=== PATIENT | female | born 1965 | race Caucasian/White ===

== ENCOUNTER → 2016-05-13 10:12 | Outpatient (CLI) | payer MEDICARE ==
[2014-08-10 07:30] VITALS: BMI 33.7
[~2016-05-13 10:12] MED LIST: ALDACTONE50 MG PO; ARMOUR THYROID90 MG PO; BUTALB-APAP-CA1 EACH PO; GLUCOPHAGE500 MG PO; HYDROCODONE-APA1 TAB PO; HYZAAR 50-12.51 TAB PO; LYRICA150 MG PO; PROMETRIUM200 MG PO; SINGULAIR10 MG PO; SOMA350 MG PO; VICTOZA0.6 MG/0.1 SQ; VITAMIN D2000 UNIT PO
--- NOTE | 2016-05-20 08:22 | EEG ---
PATIENT:JAMIE FALCON DATE OF SERVICE: 05/13/16 MEDICAL RECORD: [id number] DATE OF : 67 LOCATION: D[facility] ADMISSION DATE: 05/13/16 REFERRING PHYSICIAN: INTERPRETING PHYSICIAN: PAU HAGER MD DATE OF SERVICE: 05/13/2016 Electroencephalographic Report Referred by myself as an outpatient. ELECTROENCEPHALOGRAM NUMBER: [id number]. DATE OF EXAMINATION: 05/13/2016 at 11:30 a.m. TECHNICAL DATA: This electroencephalographic recording consists of approximately 20 minutes of data collection utilizing the international 10/20 system of electrode placement and both referential and non-referential montages. Sixteen channels of electrocerebral recording are accompanied by a 17th channel dedicated to the electrocardiographic rhythm and 2 channels of electromyographic recording. Recording is performed in the awake and sleep states utilizing activation by photic stimulation. ELECTROENCEPHALOGRAPHIC DATA: The awake state comprises only approximately 40% of the recorded electrocerebral activity. Electromyographic artifact is prominent and rapid eye movements are seen. The posterior dominant background consists of a well-developed, symmetric, rhythmic, waxing and waning alpha activity of 8-9 Hz, which is suppressed by eye opening. The patient is sleeping in stage II sleep at the onset of the recording. Electromyographic artifact is diminished and rapid eye movements are not seen. Typical 15 Hz of sleep spindles are common. Also seen is an intermittent irregular generalized and symmetric 2-3 Hz delta slowing. No abnormal nor focal slowing is identified. No epileptiform discharges are seen. Photic stimulation induces no abnormal change in the recorded electrocerebral activity. INTERPRETATION: Normal (awake and asleep). This is a normal electroencephalographic recording. TRANSINT:[id number] Voice Confirmation ID: [id number] DOCUMENT ID: [id number] ELECTROENCEPHALOGRAM REPORT [id number] JAMIE FALCON PAU HAGER MD at 0822 CC: [id number] DICTATION DATE: 05/17/16 0800 FISH GRADER: 05/18/16 0016 DEP CLI 05/13/16 [id number] [place] [address]
== END | disposition home or self-care (01) ==
LOC: D.LAB 05-10 08:45
DX: G40.101 Localization-related (focal) (partial) symptomatic epilepsy and epileptic syndromes with simple partial seizures, not intractable, with status epilepticus (principal); G60.9 Hereditary and idiopathic neuropathy, unspecified; E11.40 Type 2 diabetes mellitus with diabetic neuropathy, unspecified

== ENCOUNTER → 2016-07-17 14:03 | Outpatient (CLI) | payer MEDICARE ==
[2014-08-10 07:30] VITALS: BMI 33.7
== END | disposition home or self-care (01) ==
LOC: D.MRI 06-26 09:00
DX: G40.101 Localization-related (focal) (partial) symptomatic epilepsy and epileptic syndromes with simple partial seizures, not intractable, with status epilepticus (principal); G60.9 Hereditary and idiopathic neuropathy, unspecified; E11.40 Type 2 diabetes mellitus with diabetic neuropathy, unspecified